=== PATIENT | male | born 1980 ===

== ENCOUNTER 2022-12-09 05:46 | Inpatient (IN) ==
[~2022-12-09 05:46] MED LIST: LACTATED RINGERS 1,000 ML IV SCH
[2022-12-09] MEDS ORDERED: CLINDAMYCIN INJ 900 MG/50 ML PREMIX IV ONE (06:00)
[2022-12-09] MEDS ORDERED: LIDOCAINE 1% 5 ML VIAL ONE (06:23)
[2022-12-09] MEDS ORDERED: ROPIVACAINE 0.5% 30 ML VIAL ONE (06:23)
[2022-12-09] MEDS ORDERED: DEXAMETHASONE 4 MG/1 ML VIAL ONE (06:23)
[2022-12-09] MEDS ORDERED: FAMOTIDINE 20 MG/2 ML VIAL IV STA (06:35)
[2022-12-09] MEDS ORDERED: fentaNYL 100 MCG/2 ML VIAL ONE ×3 (06:46→08:39)
[2022-12-09] MEDS ORDERED: MIDAZOLAM 2 MG/2 ML VIAL ONE (06:46)
[2022-12-09] MEDS ORDERED: propofoL 200 MG/20 ML VIAL IV ONE (07:12)
[2022-12-09] MEDS ORDERED: ROCURONIUM 50 MG/5 ML VIAL IV ONE (07:12)
[2022-12-09] MEDS ORDERED: SUGAMMADEX 200 MG/2 ML VIAL IV ONE (08:46)
[2022-12-09] MEDS ORDERED: LACTATED RINGERS 1,000 ML IV ONE (09:03)
[2022-12-09] MEDS ORDERED: PROMETHAZINE INJ 25 MG in SODIUM CHLORIDE 0.9% 50 ML IV PRN (09:06)
[2022-12-09] MEDS ORDERED: ONDANSETRON 4 MG/2 ML VIAL IV PRN (09:06)
[2022-12-09] MEDS ORDERED: diphenhydrAMINE 50 MG/1 ML VIAL IV PRN (09:06)
[2022-12-09] MEDS ORDERED: MEPERIDINE 25 MG/1 ML VIAL IV PRN (09:06)
[2022-12-09] MEDS ORDERED: HYDROmorphone 1 MG/1 ML SYRINGE IV PRN (09:13)
[2022-12-09] MEDS ORDERED: ACETAMINOPHEN 325 MG TABLET PO PRN (09:13)
[2022-12-09 09:16] LABS: Bacteria,Urine Occasional /HPF (Few); Bilirubin,Urine Negative (Negative); Blood, Urine Negative (Negative); Glucose,Urine (UA) Negative (Negative); Ketones,Urine Negative (Negative); Mucus,Urine Occasional /LPF (Occasional); Nitrite,Urine Negative (Negative); Protein,Urine Negative (Negative); RBC,Urine 1 /HPF (0-4); Urine Appearance Clear (Clear); Urine Color Yellow (Yellow); Urine Specific Gravity 1.025 (1.001-1.035); Urine Urobilinogen 0.2 eU/dL (<2.0)
[2022-12-09] MEDS: HYDROmorphone 1 MG/1 ML SYRINGE IV PRN ×4 (09:25→09:40)
[2022-12-09] MEDS ORDERED: PROMETHAZINE 25 MG/1 ML VIAL ONE (09:29)
[2022-12-09] MEDS: DEXTROSE 5% LACTATED RINGERS 1,000 ML IV SCH ×2 (09:42→18:15)
[2022-12-09] MEDS ORDERED: MORPHINE 2 MG/1 ML SYRINGE IV PRN (11:46)
[2022-12-09] MEDS: MORPHINE 2 MG/1 ML SYRINGE IV PRN ×2 (14:35→19:37)
[2022-12-09] MEDS: ONDANSETRON 4 MG/2 ML VIAL IV PRN (18:15)
[2022-12-10] MEDS: MORPHINE 2 MG/1 ML SYRINGE IV PRN ×4 (00:20→18:15)
[2022-12-10] MEDS: DEXTROSE 5% LACTATED RINGERS 1,000 ML IV SCH ×3 (01:41→21:23)
[2022-12-10 04:00] LABS: Basophils % 0.2 % (0.0-0.8); Eosinophils % 0.1 % (0.00-10.9); Hematocrit 39.6 VOL% (42.0-52.0); Immature Granulocytes % 0.5 %; Immature Granulocytes Absolute 0.07 #; Lymphocytes # 1.6 10*3/uL (1.4-4.0); Lymphocytes % 12.3 % (21.2-54.2); Mean Corpuscular HGB Conc 32.8 GM/DL (32-36); Mean Corpuscular Volume 82.3 FL (87-102); Mean Platelet Volume 9.9 FL (9.6-12.0); Monocytes # 1.1 10*3/uL (0.11-0.8); Monocytes % 8.7 % (1.7-12.7); Neutrophils % 78.2 % (38.7-73.9); Platelet Count 268 T/CUMM (130-400); Red Blood Count 4.81 MC/CUMM (3.8-5.5); Red Cell Distribution Width 13.9 % (9.3-17.3); White Blood Count 12.8 T/CUMM (4-12)
[2022-12-10 04:14] LABS: Calcium 8.6 MG/DL (8.5-10.1); Osmolality,Calculated 276.5 MOS/KG (273-304); Potassium 3.8 MMOL/L (3.5-5.1)
[2022-12-10] MEDS: ENOXAPARIN 40 MG/0.4 ML SYRINGE SUBCUT SCH (05:57)
[2022-12-10] MEDS: ONDANSETRON 4 MG/2 ML VIAL IV PRN (14:31)
[2022-12-11] MEDS: DEXTROSE 5% LACTATED RINGERS 1,000 ML IV SCH ×3 (05:14→17:48)
[2022-12-11] MEDS: ENOXAPARIN 40 MG/0.4 ML SYRINGE SUBCUT SCH (05:15)
[2022-12-11] MEDS: MORPHINE 2 MG/1 ML SYRINGE IV PRN ×4 (05:17→20:07)
[2022-12-11] MEDS: ONDANSETRON 4 MG/2 ML VIAL IV PRN ×3 (05:20→20:08)
[2022-12-12] MEDS: DEXTROSE 5% LACTATED RINGERS 1,000 ML IV SCH ×3 (04:40→17:15)
[2022-12-12 05:12] LABS: Basophils % 0.3 % (0.0-0.8); Eosinophils # 0.1 10*3/uL (0.0-0.87); Eosinophils % 1.3 % (0.00-10.9); Hematocrit 36.3 VOL% (42.0-52.0); Hemoglobin 11.9 GM/DL (14.0-18.0); Immature Granulocytes % 0.5 %; Immature Granulocytes Absolute 0.04 #; Lymphocytes % 12.1 % (21.2-54.2); Mean Corpuscular HGB Conc 32.8 GM/DL (32-36); Mean Corpuscular Volume 83.3 FL (87-102); Monocytes # 0.7 10*3/uL (0.11-0.8); Monocytes % 9.5 % (1.7-12.7); Neutrophils % 76.3 % (38.7-73.9); Platelet Count 223 T/CUMM (130-400); Red Blood Count 4.36 MC/CUMM (3.8-5.5); Red Cell Distribution Width 13.4 % (9.3-17.3); White Blood Count 7.8 T/CUMM (4-12)
[2022-12-12 05:40] LABS: Calcium 9.1 MG/DL (8.5-10.1); Potassium 3.8 MMOL/L (3.5-5.1)
[2022-12-12] MEDS: ENOXAPARIN 40 MG/0.4 ML SYRINGE SUBCUT SCH (05:53)
[2022-12-12] MEDS: MORPHINE 2 MG/1 ML SYRINGE IV PRN ×4 (05:58→19:07)
[2022-12-12] MEDS: ONDANSETRON 4 MG/2 ML VIAL IV PRN ×3 (05:58→19:06)
[2022-12-13] MEDS: DEXTROSE 5% LACTATED RINGERS 1,000 ML IV SCH ×3 (02:30→18:39)
[2022-12-13] MEDS: MORPHINE 2 MG/1 ML SYRINGE IV PRN (04:48)
[2022-12-13] MEDS: ONDANSETRON 4 MG/2 ML VIAL IV PRN (04:48)
[2022-12-13 05:03] LABS: Basophils % 0.2 % (0.0-0.8); Eosinophils # 0.2 10*3/uL (0.0-0.87); Eosinophils % 1.9 % (0.00-10.9); Hematocrit 37.6 VOL% (42.0-52.0); Hemoglobin 12.1 GM/DL (14.0-18.0); Immature Granulocytes % 0.6 %; Immature Granulocytes Absolute 0.05 #; Lymphocytes # 0.8 10*3/uL (1.4-4.0); Lymphocytes % 9.6 % (21.2-54.2); Mean Corpuscular HGB Conc 32.2 GM/DL (32-36); Mean Corpuscular Volume 84.3 FL (87-102); Monocytes % 11.6 % (1.7-12.7); Neutrophils % 76.1 % (38.7-73.9); Platelet Count 248 T/CUMM (130-400); Red Blood Count 4.46 MC/CUMM (3.8-5.5); Red Cell Distribution Width 13.2 % (9.3-17.3); White Blood Count 8.6 T/CUMM (4-12)
[2022-12-13 05:27] LABS: Calcium 9.1 MG/DL (8.5-10.1); Osmolality,Calculated 271.8 MOS/KG (273-304)
[2022-12-13] MEDS: ENOXAPARIN 40 MG/0.4 ML SYRINGE SUBCUT SCH (05:51)
[2022-12-14] MEDS: ONDANSETRON 4 MG/2 ML VIAL IV PRN ×3 (00:43→20:35)
[2022-12-14] MEDS: DEXTROSE 5% LACTATED RINGERS 1,000 ML IV SCH ×3 (00:46→16:56)
[2022-12-14] MEDS: ENOXAPARIN 40 MG/0.4 ML SYRINGE SUBCUT SCH (05:07)
[2022-12-14] MEDS: PANTOPRAZOLE 40 MG VIAL IV SCH (16:56)
[2022-12-15] MEDS: DEXTROSE 5% LACTATED RINGERS 1,000 ML IV SCH ×3 (01:07→17:48)
[2022-12-15] MEDS: ONDANSETRON 4 MG/2 ML VIAL IV PRN (01:48)
[2022-12-15 08:30] LABS: Basophils % 0.2 % (0.0-0.8); Eosinophils # 0.1 10*3/uL (0.0-0.87); Eosinophils % 0.5 % (0.00-10.9); Hematocrit 39.5 VOL% (42.0-52.0); Hemoglobin 13.3 GM/DL (14.0-18.0); Immature Granulocytes % 0.3 %; Immature Granulocytes Absolute 0.03 #; Lymphocytes # 1.2 10*3/uL (1.4-4.0); Lymphocytes % 11.8 % (21.2-54.2); Mean Corpuscular HGB Conc 33.7 GM/DL (32-36); Mean Corpuscular Volume 82.3 FL (87-102); Mean Platelet Volume 9.4 FL (9.6-12.0); Monocytes # 1.2 10*3/uL (0.11-0.8); Monocytes % 11.8 % (1.7-12.7); Neutrophils % 75.4 % (38.7-73.9); Platelet Count 309 T/CUMM (130-400); Red Cell Distribution Width 13.4 % (9.3-17.3); White Blood Count 10.4 T/CUMM (4-12)
[2022-12-15 08:41] LABS: Calcium 8.6 MG/DL (8.5-10.1); Osmolality,Calculated 280.4 MOS/KG (273-304); Potassium 4.3 MMOL/L (3.5-5.1)
[2022-12-15] MEDS: ENOXAPARIN 40 MG/0.4 ML SYRINGE SUBCUT SCH (08:41)
[2022-12-15] MEDS: PANTOPRAZOLE 40 MG VIAL IV SCH (08:42)
[2022-12-16] MEDS: DEXTROSE 5% LACTATED RINGERS 1,000 ML IV SCH ×3 (01:28→18:00)
[2022-12-16] MEDS: ENOXAPARIN 40 MG/0.4 ML SYRINGE SUBCUT SCH (08:06)
[2022-12-16] MEDS: PANTOPRAZOLE 40 MG VIAL IV SCH (08:06)
[2022-12-17] MEDS: DEXTROSE 5% LACTATED RINGERS 1,000 ML IV SCH ×2 (02:00→10:00)
[2022-12-17] MEDS: PANTOPRAZOLE 40 MG VIAL IV SCH (09:21)
[2022-12-17] MEDS: ENOXAPARIN 40 MG/0.4 ML SYRINGE SUBCUT SCH (09:21)
[2022-12-18] MEDS: ENOXAPARIN 40 MG/0.4 ML SYRINGE SUBCUT SCH (09:18)
[2022-12-18] MEDS: PANTOPRAZOLE 40 MG VIAL IV SCH (09:19)
[2022-12-18 15:51] VITALS: BP 125/78
== END 2022-12-18 18:35 | disposition home or self-care (01) | DRG 330 ==
LOC: N.OR 05:46 → N.SDSINP 05:46 → N.3E 09:13
PROVIDERS: ADMIT Student in an Organized Health Care Education/Training Program; ATTEND Student in an Organized Health Care Education/Training Program